=== PATIENT | female | born 1990 | race Caucasian/White ===

== ENCOUNTER 2021-05-21 14:50 | Emergency (ER) | payer OTHER, SELFPAY ==
--- NOTE | ~2021-05-21 | XR_ITS ---
EXAMINATION: XR CHEST CLINICAL INFORMATION: Cough COMPARISON: None TECHNIQUE: Frontal view of the chest was obtained. FINDINGS: No significant abnormality is noted involving the heart, lungs, mediastinum, bony thorax or soft tissues. XR/XR chest 1V IMPRESSION: Unremarkable examination.
[2021-05-21 15:47] VITALS: BP 175/85; PULSE 98; RESP 17; TEMP 37.4; O2SAT 99; BMI 41.5
[2021-05-21 21:03] LABS: MANUAL DIFF FLAG NO
[2021-05-21 21:04] LABS: Basophils Percent Auto 0.3 % (0-2); Eosinophils Absolute Auto 0.2 X10*3/uL (0.0-0.4); Eosinophils Percent Auto 1.9 % (0-4); Hematocrit 40.3 % (37.0-47.0); Hemoglobin 13.7 g/dl (12.0-16.0); Imm Gran Abs Auto 0.03 X10*3/uL (0.00-0.03); Imm Gran Pct Auto 0.3 % (0.0-0.4); Lymphocytes Absolute Auto 1.9 X10*3/uL (1.2-4.9); Lymphocytes Percent Auto 18.4 % (20-40); Mean Corpuscular Volume 88.2 fL (80.0-98.0); Mean Platelet Volume 9.4 fL (9.4-12.3); Monocytes Absolute Auto 0.6 X10*3/uL (0.1-1.2); Monocytes Percent Auto 6.1 % (2-11); Neutrophils Absolute Auto 7.6 x10*3/uL (2.0-8.3); Platelet Count 298 X10*3/uL (160-400); Red Blood Count 4.57 X10*6/uL (4.20-5.50); Red Cell Distribution Width 12.1 % (11.0-16.0); White Blood Count 10.4 X10*3/uL (4.8-10.8)
[2021-05-21 21:18] LABS: Alanine Aminotransferase 39 U/L (0-31); Albumin Level 4.3 g/dL (3.5-5.0); Alkaline Phosphatase 79 U/L (39-117); Anion Gap 14 (12-20); Aspartate Amino Transferase 19 U/L (5-31); Bilirubin Total 0.4 mg/dL (0.0-1.0); Blood Urea Nitrogen 12 mg/dL (9-16); COVID-19 Test Negative (Negative); Calcium 9.3 mg/dL (8.4-10.2); Carbon Dioxide 25 mmol/L (22-29); Chloride 104 mmol/L (96-108); Creatinine Clr Calc Pharmacy 120.9; Estimated Glomerular Filt Rate > 60; Glucose Random 93 mg/dL (60-115); Potassium 4.4 mmol/L (3.3-5.1); Sodium 139 mmol/L (135-145); Total Protein 7.3 g/dL (6.5-8.0)
--- NOTE | 2021-05-21 21:34 | ED.URI ---
HPI - URI/Sore Throat General Chief Complaint: Upper Respiratory Symptoms Stated Complaint: ear pain, sore throat, abd pain, fever Time Seen by Provider: 05/21/21 21:35 Source: patient Mode of arrival: ambulatory Limitations: no limitations History of Present Illness HPI Narrative: 30-year-old female presents with upper respiratory symptoms, sore throat, difficulty swallowing, and bilateral earache. Had fever of 102 at home. MD elicited complaint: fever, sore throat, rhinorrhea and nasal congestion Onset (ago): day(s) (3) Consistency: constant Severity: moderate Pain scale (0-10): 7 Description of mucous: clear and watery Able to tolerate fluids by mouth: Yes Exacerbating factors: swallowing Relieving factors: nothing Associated symptoms: fever, chills, myalgias, headache, nasal congestion, sore throat, cough and shortness of breath Treatments prior to arrival: acetaminophen and ibuprofen Related Data Previous Rx's Medication Instructions Recorded azithromycin 250 mg tablet 250 mg PO DAILY 4 Days #4 tab 05/21/21 Allergies Allergy/AdvReac Type Severity Reaction Status Date / Time hydrocodone Allergy Intermediate Hives Verified 05/21/21 15:47 latex Allergy Intermediate Hives Verified 05/21/21 15:47 morphine Allergy Intermediate Hives Verified 05/21/21 15:47 Penicillins Allergy Intermediate Hives Verified 05/21/21 15:47 Review of Systems Review of Systems: Constitutional: positive Fever, positive Chills, positive fatigue, positive Malaise ENT/Mouth: positive sore throat, positive runny nose Eyes: No Discharge Cardiovascular: No Chest Pain, positive SOB Respiratory: Positive Cough, No Sputum, No Wheezing, No Smoke Exposure, No Dyspnea Gastrointestinal: Positive Nausea, no Vomiting, No Diarrhea Genitourinary: no irregular bleeding, No Dysuria, No Urinary Frequency, No Hematuria, No Urinary Incontinence, No Urgency, No Flank Pain, Musculoskeletal: positive Myalgia Skin: No rash Neuro: Positive Headache Yes all other systems are reviewed and are negative [facility] Past Medical History Attestation statement: The following information was validated with the patient. Source: old records reviewed Medical History Asthma Social History Social History Advance Directives: No Advance Directives Information Provided: No Patient : No Physical Exam Vital Signs: Vital Signs: Last Vital Signs Temp 99.3 F 05/21/21 15:47 Pulse 98 05/21/21 15:47 Resp 17 05/21/21 15:47 BP 175/85 H 05/21/21 15:47 Pulse Ox 99 05/21/21 15:47 Body Mass Index 41.5 Appearance: Alert. Oriented X3. Mild distress. Eyes: Pupils equal, round and reactive to light. EOMI. ENT: Pharynx erythematous with bilateral tonsillar exudates without swelling. Erythematous TM without bulging. Neck: Normal inspection. Neck supple. Anterior posterior cervical lymphadenopathy. No mastoid tenderness. CVS: Normal heart rate and rhythm. Pulses normal. Respiratory: No respiratory distress. Breath sounds normal. Abdomen: Soft and nontender. Skin: Skin warm and dry. Normal skin color. Normal skin turgor. Extremities: Gait well-balanced well coordinated. Moves all extremities against resistance. Neuro: No motor deficit. No sensory deficit. Cranial nerves 2-12 intact. Course Course Course Narrative: E.d. wait time 6 hours and 40 minutes 30-year-old female presents with upper respiratory symptoms. Physical exam consistent with pharyngitis and otitis media. Lung sounds are clear, will treat with azithromycin as she is anaphylactic to penicillins and Augmentin. Patient does understand that she must follow-up with primary care physician as needed. Patient verbalized understanding of and agrees to plan care discharge home. MDM - URI/Sore Throat Differential Diagnosis Differential diagnosis: Likely upper respiratory infection, otitis media, sinusitis, viral infection, bronchitis, influenza and pharyngitis Medical Records Attestation: I reviewed the patient's medical records. Lab Data Attestation: I reviewed the patient's lab results. Result diagrams: 05/21/21 20:55 05/21/21 20:55 Labs: Lab Results 05/21/21 05/21/21 05/21/21 Range/Units 20:55 20:55 20:55 WBC 10.4 (4.8-10.8) X10*3/uL RBC 4.57 (4.20-5.50) X10*6/uL Hgb 13.7 (12.0-16.0) g/dl Hct 40.3 (37.0-47.0) % MCV 88.2 (80.0-98.0) fL MCH 30.0 (27.0-33.0) pg MCHC 34.0 (31.0-35.0) g/dl RDW 12.1 (11.0-16.0) % Plt Count 298 (160-400) X10*3/uL MPV 9.4 (9.4-12.3) fL Immature Gran % (Auto) 0.3 (0.0-0.4) % Neut % (Auto) 73.0 (45-73) % Lymph % (Auto) 18.4 L (20-40) % [place] % (Auto) 6.1 (2-11) % Eos % (Auto) 1.9 (0-4) % Baso % (Auto) 0.3 (0-2) % Lymph # (Auto) 1.9 (1.2-4.9) X10*3/uL [place] # (Auto) 0.6 (0.1-1.2) X10*3/uL Eos # (Auto) 0.2 (0.0-0.4) X10*3/uL Baso # (Auto) 0.0 (0.0-0.2) X10*3/uL Abs Immat Gran (auto) 0.03 (0.00-0.03) X10*3/uL Absolute Neuts (auto) 7.6 (2.0-8.3) x10*3/uL Absolute Nucleated RBC 0.000 (0.0-0.012) X10*3/uL Nucleated RBC % (auto) 0.0 (0.0-0.2) /100WBC Sodium 139 (135-145) mmol/L Potassium 4.4 (3.3-5.1) mmol/L Chloride 104 (96-108) mmol/L Carbon Dioxide 25 (22-29) mmol/L Anion Gap 14 (12-20) BUN 12 (9-16) mg/dL Creatinine 0.75 (0.5-1.4) mg/dL Estim Creat Clear Calc 120.9 Estimated GFR > 60 Random Glucose 93 (60-115) mg/dL Calcium 9.3 (8.4-10.2) mg/dL Total Bilirubin 0.4 (0.0-1.0) mg/dL AST 19 (5-31) U/L ALT 39 H (0-31) U/L Alkaline Phosphatase 79 (39-117) U/L Total Protein 7.3 (6.5-8.0) g/dL Albumin 4.3 (3.5-5.0) g/dL COVID-19 ([facility]IRIAM) Negative (Negative) COVID-19 Clin Com See Note Imaging Data Chest x-ray: Attestation: I personally reviewed and interpreted this imaging study as follows: Radiologist's impression: EXAMINATION: XR CHEST CLINICAL INFORMATION: Cough COMPARISON: None TECHNIQUE: Frontal view of the chest was obtained. FINDINGS: No significant abnormality is noted involving the heart, lungs, mediastinum, bony thorax or soft tissues. XR/XR chest 1V IMPRESSION: Unremarkable examination. ? Discharge Plan Discharge Clinical Impression: Upper respiratory infection Qualifiers: URI type: unspecified viral URI Qualified Code(s): J06.9 - Acute upper respiratory infection, unspecified Otitis media Qualifiers: Otitis media type: suppurative Chronicity: acute Laterality: bilateral Recurrence: not specified as recurrent Spontaneous tympanic membrane rupture: without spontaneous rupture Qualified Code(s): H66.003 - Acute suppurative otitis media without spontaneous rupture of ear drum, bilateral Pharyngitis Qualifiers: Pharyngitis/tonsillitis etiology: unspecified etiology Qualified Code(s): J02.9 - Acute pharyngitis, unspecified Patient Disposition: Home, Self-Care Instructions: Pharyngitis (ED), Ear Infection (ED), Upper Respiratory Infection (ED) Additional Instructions: You were evaluated for upper respiratory syndrome. Physical exam indicates pharyngitis and otitis media. Please take azithromycin 250 mg for the next 4 days. We gave your 1st dose in the emergency department. Please alternate Tylenol and Motrin as needed for pain management. Write down what time you take these medications to prevent accidental overdose. Thank you for choosing this emergency department for evaluation. Please follow-up with primary care physician as needed. Return to the emergency department for any new, concerning, or worsening symptoms. Prescriptions: New azithromycin 250 mg tablet 250 mg PO DAILY 4 Days Qty: 4 RF: 0 Stand Alone Forms: Work/School Release
[2021-05-21] MEDS: Ondansetron ODT 4 MG TAB.RAPDIS TRANSLINGU (22:07)
[2021-05-21] MEDS: Azithromycin 500 MG TABLET PO (22:07)
[2021-05-21 22:10] VITALS: BP 144/72; PULSE 74; RESP 18; TEMP 37.2; O2SAT 98
== END 2021-05-21 22:13 | disposition home or self-care (01) ==
PROVIDERS: Emergency Provider Emergency Medicine
DX: J06.9 Acute upper respiratory infection, unspecified (principal); H66.003 Acute suppurative otitis media without spontaneous rupture of ear drum, bilateral; J02.9 Acute pharyngitis, unspecified; H92.03 Otalgia, bilateral; R50.9 Fever, unspecified; R51.9 Headache, unspecified; Z20.822 Contact with and (suspected) exposure to COVID-19
CPT/HCPCS: 36415; 71045; 80053; 85025; 87635; 99283; 99284

== ENCOUNTER 2024-07-30 02:36 | Emergency (ER) | payer OTHER, SELFPAY ==
[2024-07-30 02:48] VITALS: BP 153/90; PULSE 90; RESP 18; TEMP 36.8; O2SAT 97; BMI 43.6
--- NOTE | 2024-07-30 06:36 | ED_ITS ---
HPI - General Adult General Chief complaint: Ear Problems Stated complaint: ear pain Time Seen by Provider: 07/30/24 06:33 Source: patient, family, RN notes reviewed and old records reviewed Mode of arrival: ambulatory Limitations: no limitations History of Present Illness ED Provider: Zelalem MEDINA narrative: Patient is a 33-year-old female presenting to the emergency department with comp laint of bilateral ear pain, R>L. States that she began with URI symptoms on Friday, went to urgent care and tested negative for Covid and flu. Then went to PCP on Friday, was tested for full respiratory panel, all of which was negative. She was told her TMs were erythematous at that time but did not appear acutely infected and was not started on any medications. Last night the ear pain became more severe. Denies discharge or drainage from ears. Fevers on Sun-Tues, none since. Took Tylenol with little relief. History of frequent ear infections in the past. MD complaint: ear pain Onset (ago): day(s) Radiation: non-radiation Severity: severe Quality: aching Pain Consistency: constant Relieving factors: none Treatments prior to arrival: other Related Data Previous Rx's ?Medication ?Instructions ?Recorded azithromycin 250 mg tablet 250 mg PO DAILY 4 days #4 tabs 05/21/21 ondansetron HCl 4 mg tablet 4 mg PO Q8H PRN nausea and 05/21/21 (Zofran) vomiting #10 tabs azithromycin 250 mg tablet See Rx Instructions PO .COMPLEX #6 07/30/24 tabs Allergies Allergy/AdvReac Type Severity Reaction Status Date / Time hydrocodone Allergy Intermediate Hives Verified 07/30/24 02:50 latex Allergy Intermediate Hives Verified 07/30/24 02:50 morphine Allergy Intermediate Hives Verified 07/30/24 02:50 Penicillins Allergy Intermediate Hives Verified 07/30/24 02:50 Review of Systems Review of Systems: As per HPI. Yes all other systems are reviewed and are negative Constitutional: Constitutional: Reports as per HPI [facility] Past Medical History Medical History Asthma Social History Social History Advance Directives: No Do you have a plan to hurt others: No Plan Physical Exam ED Vital Signs: Vital Signs - 24 hr 07/30/24 02:48 Temperature 98.3 F Pulse Rate 90 Respiratory Rate 18 Blood Pressure 153/90 H Pulse Oximetry 97 Oxygen Delivery Method Room Air BMI result Body Mass Index 43.6 Vital signs have been reviewed and appear to be correct. Blood pressure elevated. Heart rate normal. Respiratory rate normal. Temperature normal. Oxygen saturation normal. Const General: cooperative, healthy appearing and no acute distress Orientation/consciousness: oriented to person, oriented to place, oriented to time and patient oriented x3 Limitations: no limitations HENMT Head: Yes normocephalic and Yes atraumatic Ears: hearing grossly normal bilaterally, external ears normal, EAC's normal, mastoids normal bilaterally, no periauricular adenopathy and TM abnormal bulging on the right, wth effusion purulent on the right and erythematous bilateral General nose exam: Normal external nose present and Normal nasal mucous membranes and turbinates present Face and sinus: Yes face symmetric Mouth: oropharynx normal and moist mucous membranes Throat: Yes uvula midline Eyes Pupils: Equal, round and reactive pupils present Neck Neck: Yes normal visual inspection and Yes supple Resp Effort & Inspection: normal respiratory effort and able to speak in complete sentences Auscultation: clear to auscultation bilaterally Cardio Rate: regular rate Rhythm: regular rhythm Heart sounds: S1 normal heart sound present and S2 normal heart sound present GI Palpation (GI): Soft to palpation and nontender Auscultation: normoactive bowel sounds General: Yes no CVA tenderness Back/Spine/Pelvis Back: no CVA tenderness Skin General skin exam: elasticity normal and turgor normal Neuro General: oriented to person, oriented to place, oriented to time, patient oriented x3, moves all extremities, no focal motor deficits and CN's II-XI intact bilaterally Cranial nerves: Yes Equal, round and reactive pupils present Cognition (Neuro): normal cognition Extrem General: Yes full ROM, Yes no pedal edema and Yes no calf tenderness Psych Mental Status: mental status grossly normal Affect: normal affect Thought process: Normal thought process present Medical Decision Making Medical Decision Making MDM Narrative: Patient is a 33-year-old female presenting to the emergency department with complaint of bilateral ear pain, R>L. On exam patient is awake, A+Ox3, VS WNL, afebrile, normal neurological exam without focal deficits, physical exam findings as above. Given reported symptoms and physical exam findings, initial differential includes but is not limited to otitis media, otitis externa, cerumen impaction. Do not suspect mastoiditis. Physical exam findings consistent with bilateral AOM. Will treat with azithromycin as patient has PCN allergy, also advised Tylenol/ibuprofen and nasal saline spray. Follow up with PCP as needed. Return precautions discussed. Patient verbalized understanding of and agreement with plan. Differential Diagnosis Differential Diagnoses: The differential diagnosis associated with the presentation includes As per [facility] External Record Review External record reviewed: Inpatient record, Office record and Outpatient record Prescription Management I considered prescription management with: Antibiotic Discharge Plan Discharge Clinical Impression: Otitis media Patient Disposition: Home, Self-Care Instructions: Ear Infection (ED) Additional Instructions: You were evaluated in the emergency department today for ear pain. Your ev aluation suggests that your pain is due to an ear infection. Please take your prescribed antibiotics as directed for the full course of the medication. You can apply warm compresses to the area for 10-15 minutes at a time several times daily. We recommend that you begin using over the counter nasal saline spray several times daily. We recommend that you take 650 mg of Tylenol or 600 mg of ibuprofen every 6 hours as needed. If necessary, you can alternate these medications every 3 hours. For example, at 9:00 a.m. take Tylenol, then at noon take ibuprofen, then at 3:00 p.m. take Tylenol, etc.. Please follow up with your primary care provider within two days. Return to the emergency department if you experience hearing loss, discharge from your ear, headaches, fevers, recurrent vomiting, or any other concerning symptoms. Prescriptions: New azithromycin 250 mg tablet See Rx Instructions .ROUTE .COMPLEX Qty: 6 0RF Rx Instructions: For 250 mg dose pack: take 500 mg today (day 1), then 250 mg for 4 days (days 2-5) No Action azithromycin 250 mg tablet 250 mg PO DAILY 4 Days Qty: 4 0RF Rx Instructions: start on day 2 of therapy ondansetron HCl [Zofran] 4 mg tablet 4 mg PO Q8H PRN (Reason: nausea and vomiting) Qty: 10 0RF Stand Alone Forms: Work/School Release Print Language: Citizen Of [place]
--- OUTSIDE RECORDS SUMMARY | 2024-07-30 06:38 | XMS_ITS | Encounter Summary ---
Author Organization [facility] Address [address] [place] [address] Care Team Providers Care Process Safety Engineering Technologist Name Role Phone Perla Blackburn MD Primary Care Prov ider Reason for Visit * Reason Comments Follow-up Cough and congestion Rib pain, bilateral Encounter Details Date Type Department Care Team (Late st Contact Info) Description 07/26/2024 2:00 PM EST Office Visit Adult Medicine [facility] [address] [place] [address] Chandler Lindsay MD [address] [place] [address] Moderate persistent asthma without complication (Primary Dx); Metabolic dysfunction-associate d steatotic liver disease (MASLD); Screening for diabetes mellitus (DM); Acute cough; Encounter for vitamin deficiency screening Social History Tobacco Use Types Packs/Day Years Used Date Smoking Tobacco: Some Days Smokeless Tobacco: Never Tobacco Cessation:Ready to Q uit: Not Asked; Counseling Given: Not Answered Alcohol Use Standard Drinks/Week Comments Yes 0 (1 standard drink = 0.6 oz pur e alcohol) Housing Instability Answer Date Recorde d Are you worried that in the next 2 months you may not have stable housing? No 04/26/2024 Food Access & Nutrition Answer Date Rec orded Do you have access to a vari ety of food including fruits and vegetables? Yes 04/26/2024 Health Literacy Answer Date Recorded How often do you need to hav e someone help you when you read instructions, pamphlets, or other written material from your doctor or pharmacy? Never 04/26/2024 Caregiver: How often do you need to have someone help you when you read instructions, pamphlets, or other written material from your doctor or pharmacy? Not on file 04/26/2024 Financial Risk Answer Date Recorded How hard is it for you to pa y for the very basics like food, housing, medical care, and air conditioning / heating? Not very hard 04/26/2024 Transportation Answer Date Recorded Has the lack of transportati on kept you from meetings, work, or from getting things needed for daily living? No Has the lack of transportati on kept you from medical appointments or from getting medications? No 04/26/2024 Social Isolation Answer Date Recorded How often do you feel lonely or isolated from th ose around you? Never 04/26/2024 Food Risk Answer Date Recorded Within the past 12 months we worried whether our food would run out before we got money to buy more. Never true 04/26/2024 Within the past 12 months th e food we bought just didn't last and we didn't have money to get more. Never true 04/26/2024 Dependent Care Answer Date Recorded Do you need help finding or paying for care for your loved ones. For example, child care director or elderly care for an older adult? No 04/26/2024 Education Answer Date Recorded Do you think completing more education or training, like finishing a GED, going to college, or learning a trade, would be helpful for you? No 04/26/2024 Employment and Income Answer Date Recor ded During the last four weeks, have you been actively looking for work? No 04/26/2024 Living Situation Answer Date Recorded What is your living situation? 1 06/26/2023 Sex and Gender Information Value Date Recorded Sex Assigned at Not on file Gender Identity Not on file Sexual Orientation Not on file Job Start Date Occupation Industry Not on file Not on file Not on file documented as of this encounter Last Filed Vital Signs Vital Sign Reading Time Taken Comments Blood Pressure 130/83 07/26/2024 1:52 PM EST Pulse 94 07/26/2024 1:52 PM EST Temperature 36.2 ??C (97.2 ??F) 07/26/2024 1:52 PM ES T Respiratory Rate 16 07/26/2024 1:52 PM EST Oxygen Saturation - - Inhaled Oxygen Concentration - - Weight 105 kg (231 lb 3.2 oz) 07/26/2024 1:52 PM EST Height 154.9 cm (5' 1 ) 07/26/2024 1:52 PM EST Body Mass Index 43.68 07/26/2024 1:52 PM EST documented in this encounter Ordered Prescriptions Prescription Sig Dispensed Refills Start Date End Da te EPINEPHrine (EpiPen 2-Adithya) 0.3 mg/0.3 mL injection Inject 0.3 mL (0.3 mg total) into the thigh if needed for anaphylaxis. 1 each 3 07/26/2024 loratadine (CLARITIN) 10 mg tablet Take 1 tablet (10 mg total) by mouth 1 (one) time each day. 90 tablet 2 07/26/2024 documented in this encounter Progress Notes * Chandler Lindsay MD - 07/26/2024 2:00 PM EST SUBJECTIVE: Pennie Altamirano is a 33 y.o. female who presents today for Chief Complaint Patient presents with Follow-up Cough and congestion Rib pain, bilateral HPI: Patient presenting for routine med review as well as evaluation. She states for the last 1 week shehas been having cough, chest congestion, sore throat, generalized bodyaches. She has been using albuterol more frequently. Currently on Advair. Current Meds: Current Outpatient Medications: Advair HFA 45-21 mcg/actuation inhaler, Inhale 2 puffs by mouth 2 (two) times a day., Disp: , Rfl: albuterol 2.5 mg /3 mL (0.083 %) nebulizer solution, Take 1 Vial by nebulization every 4 hours as needed for Wheezing for up to 180 days., Disp: , Rfl: albuterol HFA (PROAIR HFA ; PROVENTIL HFA ; VENTOLIN HFA) 90 mcg/actuation inhaler, Inhale 2 Puffs into the lungs every 4 hours as needed for Cough, Wheezing or Shortness of Breath., Disp: , Rfl: clobetasoL (TEMOVATE) 0.05 % cream, Apply to the affected area on the arms (avoid the face) twice daily for two weeks, Disp: , Rfl: EPINEPHrine (EpiPen 2-Adithya) 0.3 mg/0.3 mL injection, Inject 0.3 mL (0.3 mg total) into the thigh if needed for anaphylaxis., Disp: 1 each, Rfl: 3 fluticasone propionate (FLONASE) 50 mcg/actuation nasal spray, Administer 2 sprays into affected nostril(s)., Disp: , Rfl: hydrocortisone 2.5 % cream, Apply sparingly to affected areas 1 - 2 times a day as needed, Disp: , Rfl: ibuprofen (ADVIL,MOTRIN) 600 mg tablet, Take 1 Tablet by mouth every 8 hours as needed for Pain., Disp: , Rfl: ipratropium (ATROVENT) 21 mcg (0.03 %) nasal spray, Administer 1 spray into each nostril every 12 (twelve) hours., Disp: , Rfl: ketoconazole (NIZORAL) 2 % shampoo, APPLY TOPICALLY 1 (ONE) TIME PER WEEK. APPLY TO DAMP SKIN, LATHER, LEAVE ON 5 MINUTES, AND RINSE, Disp: 120 mL, Rfl: 0 loratadine (CLARITIN) 10 mg tablet, Take 1 tablet (10 mg total) by mouth 1 (one) time each day., Disp: 90 tablet, Rfl: 2 meclizine (ANTIVERT) 25 mg tablet, Take 1 tablet (25 mg total) by mouth 3 (three) times a day if needed for dizziness., Disp: 30 tablet, Rfl: 0 montelukast (SINGULAIR) 10 mg tablet, , Disp: , Rfl: ondansetron (ZOFRAN) 4 mg tablet, Take 1 Tab by mouth every 8 hours as needed., Disp: , Rfl: sucralfate (CARAFATE) 1 gram tablet, Take 1 Tablet by mouth 2 times daily (before meals). Melt tablet in 4-5oz cup of warm water, stir and drink, Disp: , Rfl: Allergies: Allergies Allergen Reactions Morphine Anaphylaxis Amoxicillin-Pot Clavulanate Rash and Swelling Last given 13 years ago Danieleocado Hives Clindamycin Swelling Had facial swelling with bactrim but then diagnosed with retropharyngeal abscess. Symptoms were improving and was discharged home on po clinda and returned with facial swelling and hives Hydrocodone Nausea And Vomiting dizzy Hydrocodone-Acetaminophen Nausea And Vomiting Latex Hives Mold [place] Runny nose Other Diarrhea Paprika: swelling and edema Meat Extract - Red meat - diarrhea that lasts 2 to 3 days; benadryl stops the pain Penicillins Swelling Hives Shrimp Swelling Throat swelling , avoids all shellfish Sulfa (Sulfonamide Antibiotics) Swelling Review of records, was treated for ear infection and was given bactrim. Developed facial swelling and erythema. Immunizations: Immunization History Administered Date(s) Administered DTaP (Infanrix) 6wks to less than 7yo 01/22/1993, 08/03/1993, 10/03/1993, 12/10/1994, 12/08/1996 LAeY-NRM-ISZ (Pentacel) 2mo to less than 5yo 01/22/1993, 08/03/1993, 02/11/1994 HPV, Quadrivalent 12/30/2008, 02/25/2013 Hepatitis B Pediatric (Engerix B; Recombivax HB) to less than 20 yo 08/03/1993, 08/31/1993, 02/11/1994 Hib (HbOC) 01/22/1993, 08/03/1993, 02/11/1994 IPV Inactivated polio (Ipol) 6wks and older 01/22/1993, 08/03/1993, 09/07/1993, 10/03/1993 MMR, measles mumps and rubella Live (Priorix; M-M-R II) 12mo and older 11/20/1993, 12/08/1996 Meningococcal MCV4P 12/30/2008 [employer] SARS-CoV-2 COVID-19, mRNA, LNP-S, preservative free 12/12/2020, 01/02/2021, 08/29/2021 Pneumococcal polysaccharide 23 valent (Pneumovax 23) 2yo and older 01/03/2015 Tb Skin Test 08/09/2021 Td Tetanus diptheria (Tdvax) 7yo and older 02/05/2005, 01/13/2019 Tdap Tetanus diptheria acellular pertussis (Boostrix; Adacel) 7yo and older 12/30/2008 Varicella live (Varivax) 12mo and older 07/22/1994 Active Problems: Patient Active Problem List Diagnosis Anxiety Asthma Cholelithiasis Fatty liver Generalized headaches GERD (gastroesophageal reflux disease) Kidney stone Microalbuminuria PCOS (polycystic ovarian syndrome) Scoliosis Seasonal allergies Severe obesity (BMI 35.0-39.9) with comorbidity (CMS/HCC) Snoring Vitamin D deficiency Metabolic dysfunction-associated steatotic liver disease (MASLD) HISTORY: Past Medical History: Diagnosis Date Anxiety DX:Anxiety Asthma DX:Asthma Depressive disorder DX:Depressive disorder Epigastric pain DX:Epigastric pain Family history of breast cancer DX:Family history of breast cancer; COMMENT: Fam hx Breast and Uterine cancer, Per pt BRCA testing Low risk Fatty liver DX:Fatty liver Generalized headaches DX:Generalized headaches GERD (gastroesophageal reflux disease) 10/30/2012 DX:GERD (gastroesophageal reflux disease) Nausea and vomiting DX:Nausea and vomiting PCOS (polycystic ovarian syndrome) DX:PCOS (polycystic ovarian syndrome) Scoliosis DX:Scoliosis Seasonal allergies DX:Seasonal allergies Vitamin D deficiency DX:Vitamin D deficiency Past Surgical History: Procedure Laterality Date FLEXIBLE SIGMOIDOSCOPY 10/04/2013 PROCEDURE: HISTORICAL FLEXIBLE SIGMOIDOSCOPY; COMMENT: normal to 20 cm UPPER GASTROINTESTINAL ENDOSCOPY 07/23/2019 PROCEDURE: CO UPPER GI ENDOSCOPY PERFORMED; COMMENT: Normal. (Current treatment = famotidine, sucralfate, pantoprazole, ibuprofen) WISDOM TOOTH EXTRACTION PROCEDURE: HISTORICAL WISDOM TEETH EXTRACTION Family History Problem Relation Name Age of Onset Breast cancer Paternal Grandmother 48.00 at 98. Uterine cancer Paternal Grandmother 52.00 Colon cancer Maternal Grandmother 56.00 Uterine cancer Maternal Grandmother 38.00 Breast cancer Mother's side 50.00 Great Aunt Other (Other: diabetes) Mother's side and father's side Stroke Mother's side and father's side Hypertension Mother's side Glaucoma Mother's side Thyroid disease Mother's side Other (Other: epilespy) Mother's side Other (Other: joint problems) Other Uterine cancer Mother's side 48.00 Great Aunt Uterine cancer Mother's side 50.00 Great Aunt Uterine cancer Mother's side 52.00 Great Aunt Uterine cancer Mother's side 56.00 Great Aunt Uterine cancer Mother's side 60.00 Great Aunt Heart attack Father Social History Socioeconomic History Marital status: Spouse name: Not on file Number of children: Not on file Years of education: Not on file Highest education level: Not on file Occupational History Not on file Tobacco Use Smoking status: Some Days Smokeless tobacco: Never Substance and Sexual Activity Alcohol use: Yes Drug use: No Sexual activity: Not on file Other Topics Concern Not on file Social History Narrative Feels safe at home and in relationship ROS: GENERAL: Negative for malaise, significant weight loss and fever NECK: Negative for lumps, goiter, pain, and significant neck swelling RESPIRATORY: Negative for wheezing and shortness of breath, Positive for See HPI CARDIOVASCULAR: Negative for chest pain, leg swelling and palpitations GI: Negative for abdominal discomfort, changes in bowel habits, blood in stool or black stools VITAL SIGNS Vitals: 07/26/24 1352 BP: 130/83 Pulse: 94 Resp: 16 Temp: 36.2 ??C (97.2 ??F) TempSrc: Temporal Weight: 105 kg (231 lb 3.2 oz) Height: 1.549 m (61 ) Body mass index is 43.68 kg/m??. Body surface area is 2.01 meters squared. PHYSICAL EXAM: Blood pressure 130/83, pulse 94, temperature 36.2 ??C (97.2 ??F), temperature source Temporal, resp. rate 16, height 1.549 m (61 ), weight 105 kg (231 lb 3.2 oz). Body mass index is 43.68 kg/m??. Plan is deferred until next visit APPEARANCE: Alert and in no acute distress EYES: PERRLA, conjunctiva and sclera normal EARS: External ears normal. Canals clear. TMs normal. NOSE/SINUS: Nares normal. Septum midline. Mucosa normal. No drainage or sinus tenderness MOUTH/THROAT: mild erythema NECK: Neck supple, no adenopathy, thyroid symmetric and of normal size HEART: RRR with normal S1 and S2, no murmurs, no gallops, no JVD appreciated CHEST: non-tender LUNG: clear to auscultation bilaterally ABDOMEN: Bowel sounds normoactive, no bruits and soft, non-tender, without organomegaly or palpablemasses No results found for this or any previous visit (from the past 4464 hour(s)). ASSESSMENT/PLAN: Pennie was seen today for follow-up. Diagnoses and all orders for this visit: Moderate persistent asthma without complication (Primary) - CBC and differential; Future - Comprehensive metabolic panel; Future Metabolic dysfunction-associated steatotic liver disease (MASLD) - CBC and differential; Future - Comprehensive metabolic panel; Future - Liver fibrosis, fibrotest-actitest panel; Future - Lipid panel with reflex to direct LDL; Future Screening for diabetes mellitus (DM) - Hemoglobin A1c; Future Acute cough - XR Chest 2 Views; Future - Cancel: Respiratory virus panel molecular study; Future - Respiratory virus panel molecular study Encounter for vitamin deficiency screening - Vitamin D 25 hydroxy; Future Other orders - loratadine (CLARITIN) 10 mg tablet; Take 1 tablet (10 mg total) by mouth 1 (one) time each day. - EPINEPHrine (EpiPen 2-Adithya) 0.3 mg/0.3 mL injection; Inject 0.3 mL (0.3 mg total) into the thigh if needed for anaphylaxis. Plan Presentation consistent with a viral respiratory tract infection, most likely bronchitis. Does not appear to be an asthma exacerbation at this time. No wheeze on exam. Continue with albuterol, Advairat this time. Advised to use [id number] Mucinex for symptomatic treatment of the cough at this time. Will obtain respiratory viral panel as well as a chest x-ray. Patient with history of fatty liver. Advised to get the labs prior to 3 weeks from now when she hasrecovered from the viral respiratory tract infection. Will check CBC, CMP, lipid panel as well as FibroSure panel. Advised on low-fat diet, exercise. Check vitamin D as she previously vitamin D deficiency. Continue current inhalers for asthma management. Continue Claritin, montelukast as well. I have applied the code G2211 to this patient???s visit as the primary care provider dealing with (above mentioned conditions) leading to the extensive work up, and management associated with the medical care of this patient. This patient???s serious conditions and complex medical conditions also required several consultants needing management and coordination through my office. I have reviewed all information as it pertains to the management of this patient for final approval. Follow up in about 6 months (around 01/23/2025) for Next scheduled follow-up. Orders Placed This Encounter Procedures Respiratory virus panel molecular study XR Chest 2 Views Hemoglobin A1c CBC and differential Comprehensive metabolic panel Liver fibrosis, fibrotest-actitest panel Lipid panel with reflex to direct LDL Vitamin D 25 hydroxy Chandler Lindsay MD documented in this encounter Plan of Treatment Upcoming Encounters Date Type Department Care Team (Late st Contact Info) Description 08/03/2024 1:40 PM EST Office Visit Obstetrics and Gynecology - [address] [address] Antonia Allred PA [address] [place] [address] Scheduled Orders Name Type Priority Associated Diagnoses Orde r Schedule Hemoglobin A1c Lab Routine Screening for diabetes mellitus (DM) 1 Occurrences starting 07/26/2024 until 07/26/2025 CBC and differential Lab Routine Moderate persistent asthma without complication Metabolic dysfunction-associated steatotic liver disease (MASLD) 1 Occurrences starting 07/26/2024 until 07/26/2025 Comprehensive metabolic panel Lab Routine Moderate persistent asthma without complication Metabolic dysfunction-associated steatotic liver disease (MASLD) 1 Occurrences starting 07/26/2024 until 07/26/2025 Liver fibrosis, fibrotest-actitest panel Lab Routine Metabolic dysfunction-associated steatotic liver disease (MASLD) 1 Occurrences starting 07/26/2024 until 07/26/2025 Lipid panel with reflex to direct LDL Lab Routine Metabolic dysfunction-associated steatotic liver disease (MASLD) 1 Occurrences starting 07/26/2024 until 07/26/2025 Vitamin D 25 hydroxy Lab Routine Encounter for vitamin deficiency screening 1 Occurrences starting 07/26/2024 until 07/26/2025 documented as of this encounter Procedures Procedure Name Priority Date/Time Associated Diagnosis Comments RESPIRATORY VIRUS PANEL MOLECULAR STUDY Routine 07/26/2024 2:30 PM EST Acute cough documented in this encounter Results * XR Chest 2 Views (07/26/2024 2:34 PM EST) Anatomical Region Laterality Modality Body Radiographic Rayne ging 07/26/2024 5:36 PM EST Impressions 07/26/2024 5:37 PM EST No acute cardiopulmonary process. -------- FINAL REPORT -------- Dictated By: Carlos Rosas Dictated Date: 07/26/2024 17:36 ET Assigned Physician: Carlos Rosas Reviewed and Electronically Signed By: Carlos Rosas Signed Date: 07/26/2024 17:37 ET Workstation ID: [id number] Transcribed By: Self Edit Transcribed Date: 07/26/2024 17:36 ET Narrative 07/26/2024 5:37 PM EST HISTORY: acute cough TECHNIQUE: PA and lateral radiographs of the chest COMPARISON: Chest radiograph from 08/15/2022 FINDINGS: There is a normal cardiomediastinal silhouette. The lungs are clear. The osseous structures are intact. ?? Procedure Note Carlos Rosas MD - 07/26/2024 HISTORY: acute cough TECHNIQUE: PA and lateral radiographs of the chest COMPARISON: Chest radiograph from 08/15/2022 FINDINGS: There is a normal cardiomediastinal silhouette. The lungs are clear. Theosseous structures are intact. IMPRESSION: No acute cardiopulmonary process. -------- FINAL REPORT -------- Dictated By: Carlos Rosas Dictated Date: 07/26/2024 17:36 ET Assigned Physician: Carlos Rosas Reviewed and Electronically Signed By: Carlos Rosas Signed Date: 07/26/2024 17:37 ET Workstation ID: [id number] Transcribed By: Self Edit Transcribed Date: 07/26/2024 17:36 ET Chandler Lindsay MD IMG XR PROCEDU RES * (ABNORMAL) Respiratory virus panel molecular study (07/26/2024 2:30 PM EST) Pathologist [facility] Adenovirus Detection by PCR Not Detected Not Detected LAB MICROBIOLOGY METHOD 07/26/2024 9:22 PM EST [facility] Influenza A PCR Not Detected Not Detected LAB MICROBIOLOGY METHOD 07/26/2024 9:22 PM EST [facility] Influenza B PCR Not Detected Not Detected LAB MICROBIOLOGY METHOD 07/26/2024 9:22 PM EST [facility] Coronavirus 229E Not Detected Not Detected LAB MICROBIOLOGY METHOD 07/26/2024 9:22 PM EST [facility] Coronavirus HKU1 Not Detected Not Detected LAB MICROBIOLOGY METHOD 07/26/2024 9:22 PM [facility] Coronavirus OC43 Not Detected Not Detected LAB MICROBIOLOGY METHOD 07/26/2024 9:22 PM [facility] Coronavirus NL63 Detected(A ) Not Detected LAB MICROBIOLOGY METHOD 07/26/2024 9:22 PM [facility] Parainfluenza Virus 1 Not Detected Not Detected LAB MICROBIOLOGY METHOD 07/26/2024 9:22 PM [facility] Parainfluenza Virus 2 Not Detected Not Detected LAB MICROBIOLOGY METHOD 07/26/2024 9:22 PM [facility] Parainfluenza Virus 3 Not Detected Not Detected LAB MICROBIOLOGY METHOD 07/26/2024 9:22 PM [facility] Parainfluenza Virus 4 Not Detected Not Detected LAB MICROBIOLOGY METHOD 07/26/2024 9:22 PM [facility] RSV PCR Not Detected Not Detected LAB MICROBIOLOGY METHOD 07/26/2024 9:22 PM [facility] Human Metapneumovirus A and B Not Detected Not Detected LAB MICROBIOLOGY METHOD 07/26/2024 9:22 PM [facility] Rhinovirus/Entero virus Not Detected Not Detected LAB MICROBIOLOGY METHOD 07/26/2024 9:22 PM [facility] Bordetella pertussis Not Detected Not Detected LAB MICROBIOLOGY METHOD 07/26/2024 9:22 PM [facility] Bordetella parapertussis Not Detected Not Detected LAB MICROBIOLOGY METHOD 07/26/2024 9:22 PM [facility] Mycoplasma pneumo by PCR Not Detected Not Detected LAB MICROBIOLOGY METHOD 07/26/2024 9:22 PM [facility] Chlamydia pneumoniae Not Detected Not Detected LAB MICROBIOLOGY METHOD 07/26/2024 9:22 PM [facility] SARS COV-2 Not Detected Not Detected LAB MICROBIOLOGY METHOD 07/26/2024 9:22 PM EST [facility] Swab Both anterior nares / Unknown Non-blood Collection / Unknown 07/26/2024 2:30 PM EST 07/26/2024 2:30 PM EST Narrative [facility] - 07/26/2024 9:22 PM EST Testing was performed using the [employer] Respiratory Pathogen PCR Assay. All results must be correlated with the clinical findings. Results should not be used as the sole basis for diagnosis. False Negative results may occur from the presence of sequence variants in the region targeted by the assay or the presence of inhibitors. Results may be affected by concurrent antiviral/antimicrobial therapy or levels of organisms that are below the limit of detection. Chandler Lindsay MD LAB MICROBIOLO GY - GENERAL ORDERABLES [facility] [address] [place] [address], documented in this encounter Visit Diagnoses Diagnosis Moderate persistent asthma without complication- Primary Metabolic dysfunction-associated steatotic liver disease (MASLD) Screening for diabetes mellitus (DM) Screening for diabetes mellitus Acute cough Encounter for vitamin deficiency screening Acute cough documented in this encounter Discontinued Medications Medication Sig Discontinue Reason Start Date End Da te predniSONE (DELTASONE) 20 mg tablet Take 3 tab by mouth for 2 days, then 2 tab by mouth for 2 days, then 1 tab by mouth for 2 days. Take with food in the morning. 05/06/2024 07/26/2024 albuterol HFA (PROAIR HFA ; PROVENTIL HFA ; VENTOLIN HFA) 90 mcg/actuation inhalerIndications:Viral URI,Mild intermittent asthma with exacerbation Inhale 2 puffs by mouth every 6 (six) hours if needed for wheezing or shortness of breath. Duplicate order 05/06/2024 07/26/2024 budesonide-formoteroL (Symbicort) 80-4.5 mcg/actuation inhaler INHALE 2 PUFFS INTO THE LUNGS TWICE A DAY 09/26/2022 07/26/2024 EPINEPHrine (EpiPen 2-Adithya) 0.3 mg/0.3 mL injection Inject 1 Device as directed as needed (anaphylaxis). Use as directed Reorder 10/21/2022 07/26/2024 loratadine (CLARITIN) 10 mg tablet Reorder 07/26/2024 documented as of this encounter Historical Medications * This list may reflect changes made after this encounter. Medication Sig Dispensed Refills Start Date End Date ipratropium (ATROVENT) 21 mcg (0.03 %) nasal spray Administer 1 spray into each nostril every 12 (twelve) hours. 07/25/2024 Advair HFA 45-21 mcg/actuation inhaler Inhale 2 puffs by mouth 2 (two) times a day. 06/06/2024 added in this encounter Additional Health Concerns Infection Onset Date Last Indicated Resolved Time Respiratory Rule-Out 07/26/2024 07/26/2024 025 9:22 PM EST COVID-19 Rule-Out 07/26/2024 07/26/2024 07/26/2024 9:22 PM EST documented as of this encounter Care Teams Process Safety Engineering Technologist Relationship Specialty Start Date End Date Perla Blackburn MD [address] [place] [id number] PCP - General Internal Medicine 04/26/24 documented as of this encounter
--- OUTSIDE RECORDS SUMMARY | 2024-07-30 06:38 | XMS_ITS | Data Portability ---
Author Organization [facility], [address] Address [address] [place] [address] Care Team Providers Care Certified Nurse Name Role Phone [facility] Prim estero Care Provider Assessment No assessment recorded. Plan of Treatment Reminders Order Date Submit Date Provider Last Modified By Organization Details Last Modified Time Details Appointments None recorded. Lab rapid flu (A+B) 2021 022 [email or web address] [facility] [address], [address] [place], [address], 16:57:43 rapid SARS CoV 2 Ag, QL IA, respirato ry specimen 2021 022 [email or web address] [facility] [address], [address] [place], [address], 16:57:43 urinalysi s, dipstick 2021 022 [email or web address] [facility] [address], [address] [place], [address], 16:57:43 test, urine 2021 022 [email or web address] [facility] [address], [address] [place], [address], 16:57:43 culture, urine 2021 022 [email or web address] [facility] ([place]), [address] [facility], [place], [address], 17:05:08 Referral None recorded. Procedures None recorded. Surgeries None recorded. Imaging None recorded. Medication Orders Tamiflu 75 mg capsule 2021 [facility] #[id number], [phone] [place], [address], 16:57:48 Macrobid 100 mg capsule 2021 022 [id number], [phone] [place], [address], 16:57:46 Patient TargetsNo targets recorded. Patient Instructions Encounter Date Encounter Id Patient Instructions Last Modified By Organization Details Last Modified Time 06/02/2022 [id number] We recommend you get a repeat urinalysis in 2 weeks to ensure that any abnormalities have resolved. If urine abnormalities persist, you will likely need further testing or treatment. We will contact you within 3 to 5 days with the results of your lab test. If you have not heard back from us within that time frame, please feel free to contact our office regarding your results. Go to the Emergency Department immediately if your symptoms worsen or if you develop new symptoms that concern you. Drink plenty of fluids You should follow-up with your PCP in 4-5 days, or at any time if your condition does not improve or worsens. Any acute change should prompt a visit to the nearest Emergency Department. [email or web address] Not available 06/02/2022 16:57:59 You have tested positive for the flu (influenza). If prescribed take Tamiflu (oseltamivir). Take Mucinex DM or Robitussin DM as needed for cough and congestion. You can also try Flonase Allergy 2 sprays to each nostril once a day for congestion. You can also try saline spray for stuffy nose. If you do not have high blood pressure or heart problems, you can try Sudafed or similar decongestants for congestion. If you have high blood pressure you can take Coracidin HBP You can take Claritin or Zyrtec as needed for drainage. Take over the counter acetaminophen or ibuprofen as needed for pain, body aches, fever, or chills. You can try throat lozenges or salt water gargles for any sore throat. Your symptoms may take 7-10 days to go away. Drink lots of fluids. Get plenty of rest. Contact us if you have worsening symptoms such as high fever, shortness of breath, inability to keep liquids and solids down, or other worsening symptoms. Contact us if your symptoms fail to improve after 10 days. [email or web address] Not available 06/02/2022 16:58:07 Reason for Referral None Reported. Results Created Date Observation Date Name Description Value Unit Range Abnormal Flag Note LastModifiedBy Organization Detail LastModifiedTime 06/02/20 22 06/02/2022 rapid SARS CoV 2 Ag, QL IA, respi rator y speci men Unknown Analyte Normal =Negat lacey Not Available [address] [place], [address], 06/02/2022 16:38:11 06/02/20 22 06/02/2022 rapid SARS CoV 2 Ag, QL IA, respi rator y speci men Unknown Analyte negati ve Not Available [address] [place], [address], 06/02/2022 16:38:11 06/02/20 22 06/02/2022 rapid flu (A+B) Unknown Analyte positi ve Not Available [address] [place], [address], 06/02/2022 16:37:54 06/02/20 22 06/02/2022 rapid flu (A+B) Unknown Analyte Normal = Negati ve Not Available [address] [place], [address], 06/02/2022 16:37:54 06/02/20 22 06/02/2022 rapid flu (A+B) Unknown Analyte negati ve Not Available [address] [place], [address], 06/02/2022 16:37:54 06/02/20 22 06/02/2022 rapid flu (A+B) Unknown Analyte Normal = Negati ve Not Available [address] [place] [address] [place], [address], 06/02/2022 16:37:54 06/02/20 22 06/02/2022 pregn jessenia test, urine Unknown Analyte Normal = Negati ve Not Available [facility] [address] [place], [address], 06/02/2022 16:12:09 06/02/20 22 06/02/2022 pregn jessenia test, urine Unknown Analyte negati ve Not Available [facility] [address] [place], [address], 06/02/2022 16:12:09 06/02/20 22 06/02/2022 urina lysis , dipst ick Unknown Analyte Yellow Not Available [address] [place] [address] [place], [address], 06/02/2022 16:12:09 06/02/20 22 06/02/2022 urina lysis , dipst ick Unknown Analyte Normal = light yellow , dark yellow Not Available [facility] [address] [place], [address], 06/02/2022 16:12:09 06/02/20 22 06/02/2022 urina lysis , dipst ick Unknown Analyte cloudy Not Available [address] [place] [address] [place], [address], 06/02/2022 16:12:09 06/02/20 22 06/02/2022 urina lysis , dipst ick Unknown Analyte Normal = clear Not Available [address] [place], [address], 06/02/2022 16:12:09 06/02/20 22 06/02/2022 urina lysis , dipst ick Unknown Analyte Negati ve Not Available [address] [place], [address], 06/02/2022 16:12:09 06/02/20 22 06/02/2022 urina lysis , dipst ick Unknown Analyte Normal = negati ve Not Available [address] [place], [address], 06/02/2022 16:12:09 06/02/20 22 06/02/2022 urina lysis , dipst ick Unknown Analyte Negati ve Not Available [address] [place], [address], 06/02/2022 16:12:09 06/02/20 22 06/02/2022 urina lysis , dipst ick Unknown Analyte Normal = Negati ve Not Available [address] [place], [address], 06/02/2022 16:12:09 06/02/20 22 06/02/2022 urina lysis , dipst ick Unknown Analyte Negati ve Not Available [address] [place], [address], 06/02/2022 16:12:09 06/02/20 22 06/02/2022 urina lysis , dipst ick Unknown Analyte Normal = Negati ve Not Available [address] [place], [address], 06/02/2022 16:12:09 06/02/20 06/02/2022 urina lysis , dipst ick Unknown Analyte 1.025 Not Available [address] [place] [address] [place], [address], 06/02/2022 16:12:09 06/02/20 22 06/02/2022 urina lysis , dipst ick Unknown Analyte Normal = 1.010, 1.015, 1.020 Not Available [address] [place], [address], 06/02/2022 16:12:09 06/02/20 22 06/02/2022 urina lysis , dipst ick Unknown Analyte Trace- intact Not Available [address] [place], [address], 06/02/2022 16:12:09 06/02/20 22 06/02/2022 urina lysis , dipst ick Unknown Analyte Normal = Negati ve Not Available [address] [place], [address], 06/02/2022 16:12:09 06/02/20 22 06/02/2022 urina lysis , dipst ick Unknown Analyte 7.0 Not Available [address] [place] [address] [place], [address], 06/02/2022 16:12:09 06/02/20 22 06/02/2022 urina lysis , dipst ick Unknown Analyte Normal = 6.5, 7.0, 7.5, 8.0 Not Available [address] [place], [address], 06/02/2022 16:12:09 06/02/20 22 06/02/2022 urina lysis , dipst ick Unknown Analyte 15 mg/dL Not Available [facility] [facility] [address] [place], [address], 06/02/2022 16:12:09 06/02/20 22 06/02/2022 urina lysis , dipst ick Unknown Analyte Normal = Negati ve Not Available [address] [place], [address], 06/02/2022 16:12:09 06/02/20 22 06/02/2022 urina lysis , dipst ick Unknown Analyte 0.2 E.U./d L Not Available [address] [place], [address], 06/02/2022 16:12:09 06/02/20 22 06/02/2022 urina lysis , dipst ick Unknown Analyte Normal = 0.2, 1.0 Not Available [address] [place], [address], 06/02/2022 16:12:09 06/02/20 22 06/02/2022 urina lysis , dipst ick Unknown Analyte Negati ve Not Available [address] [place], [address], 06/02/2022 16:12:09 06/02/20 22 06/02/2022 urina lysis , dipst ick Unknown Analyte Normal = Negati ve Not Available [address] [place], [address], 06/02/2022 16:12:09 06/02/20 22 06/02/2022 urina lysis , dipst ick Unknown Analyte Negati ve Not Available [address] [place], [address], 06/02/2022 16:12:09 06/02/20 22 06/02/2022 urina lysis , dipst ick Unknown Analyte Normal = Negati ve Not Available [address] [facility], [place], [address], 06/02/2022 16:12:09 06/03/20 22 06/04/2022 URINE CULTU RE, ROUTI NE urine culture, routine Final report Not Available [facility] ([facility]) [address] [place], [address], 06/04/2022 18:06:20 06/03/20 22 06/04/2022 URINE CULTU RE, ROUTI NE result 1 No growth Not Available [facility] ([facility]) [address] [facility], [place], [address], 06/04/2022 18:06:20 Result Notes None recorded. Problems Name Problem SNOMED Code Status Onset Date Resolution Date Notes Provider Name and Address Organization Details Recorded Time Seasonal allergy 262403422 Active 022 MYRANDA DRINKWINE null, [place] - [facility] 2 16:14:45 Asthma 835376086 Active 022 MYRANDA DRINKWINE null, PA - [facility] 16:14:52 Problem Notes None recorded. Medical Equipment None Reported. Allergies Allergen ID Allergen Name Allergen Category Reaction Reaction Severity Criticality Documentation Date Start Date Code Code System Note Provider Name and Address Organization Details Recorded Time 53510 morphine medicatio n hives Not available Not available 06/02/2022 7052 RxNorm MYRANDA DRINKWINE null, PA - [facility] 16:13:18 08487 oxycodone medicatio n hives Not available Not available 06/02/2022 7804 RxNorm MYRANDA DRINKWINE null, PA - [facility] 16:13:31 21823 hydrocodo ne Not available hives Not available Not available 06/02/2022 5489 RxNorm MYRANDA DRINKWINE null, PA - [facility] 16:13:47 33960 Product containin g penicilli n and antibioti c (product) medicatio n swelling Not available Not available 06/02/2022 96330 05 SNOMED MYRANDA vernon PA - [facility] 16:14:12 Medications Name Sig Start Date Stop Date Status Note LastModified by Organization Details LastModified Time Tamiflu 75 mg capsule Take 1 capsule twice a day by oral route for 5 days. 022 active Not Available Not Available Not Avai lable Macrobid 100 mg capsule Take 1 capsule every 12 hours by oral route for 7 days. 022 active Not Available Not Available Not Avai lable albuterol sulfate active Not Available Not Available Not Available Zyrtec active Not Available Not Availa ble Not Available Vitals Date Recorded Body height Body mass index (BMI) Body weight Pain severity - 0-10 verbal numeric rating [Score] - Reported Body temperature Respiratory rate Heart rate Oxygen saturation Oxygen saturation in Arterial blood by Pulse oximetry Systolic blood pressure Diastolic blood pressure Provider Name and Address Organization Details Last Updated DateTime 154.94 cm 40.6 kg/m2 14077.3 6 g 10 99.6 [degF] 18 /min 121 /min 96 % 96 % 125 mm[Hg] 89 mm[Hg] MYRANDA WRIGHT PA - [facility] 16:19:49 Social History Question Answer Notes LastModified by Organizat ion Details LastModified Time Tobacco Smoking Status Current Some Day Smoker MYRANDA vernon PA - [facility] 06/02/2022 16:16:20 Which Illicit Or Recreational Drugs Have You Used? Marijuana Information not available 06/02/2022 Do You Use Any Illicit Or Recreational Drugs? Yes Information not available 06/02/2022 Have You Recently Traveled Abroad? Yes [place] 05/23- 7 Information not available 06/02/2022 Do You Or Have You Ever Used Any Other Forms Of Tobacco Or Nicotine? No Information not available 06/02/2022 Sex: Unknown Functional Status None recorded. Mental Status None recorded. Family History Relationship Description Onset Age of this Age Resolved Age Notes LastModified by Organization Details LastModified Time Father Heart disease [email or web address] Not available 06/02 16:15:14 Mother Heart disease ldrinkwine Not available 06/02 16:15:14 Mother Diabetes mellitus [email or web address] Not available 06/02 16:15:21 Mother Disorder of thyroid gland [email or web address] Not available 06/02 16:15:33 Mother Glaucoma [email or web address] Not availab le 06/02/2022 16:15:41 Medical History No medical history recorded. Gynecological HistoryNo gynecological history recorded. Obstetrics History GPAL:G 0 P 0 0 0 0 Past Encounters Encounter ID Performer Location Encounter Start Date Encounter Closed Date Diagnosis/Indication Diagnosis SNOMED-CT Code Diagnosis ICD10 Code Diagnosis Note [id number] [address] [place] [address] 10/12/2020 09:13:12 10/12/2020 11:00:54 [id number] [address] [place] [address] 05/22/2017 12:24:42 05/22/2017 12:59:23 [id number] Woo HarryKAEYLN jennings [address] [place] [address] 06/02/2022 13:23:57 06/02/2022 17:12:31 Acute urinary tract infection 659351931 N39.0 Influenza caused by Influenza A virus 849053143 J09.X2 Health Concerns Section Related Observation LastModified by Organization Detai ls LastModified Time None Recorded Concern Status LastModified by Organization Details LastModified Time None Recorded Advance Directives Directive None Recorded Payers Encounter Date Sequence Insurance Name Policy Number Policy Cuenca Covered Member ID Cuenac Member ID Guarantor Name 10/12/2020 1 [facility] NET PLAN (MEDICAID HMO) ANDRE Altamirano [id number] Pennie Altamirano 06/02/2022 1 [facility] NET PL[facility] (MEDICAID HMO) ANDRE Altamirano [id number] Pennie Altamirano Notes Date Note Type Note Provider Name and Address Organization Details Recorded Time 06/02/2022 text/html Urinary Complain t FemaleReported bypatient.Notes:rece ntly travel from [facility] develop dysuria this morning. Also have nasal congestion and post nasal drip. her children are positive for flu also. Woo Mcdonald NP [address] [place], [address], [place] - [facility] 06/02/2022 16:58:42 OBGyn Episode No OBEpisode recorded.
--- OUTSIDE RECORDS SUMMARY | 2024-07-30 06:38 | XMS_ITS | Encounter Summary ---
Author Organization [facility] Address [address] [place] [address] Care Team Providers Care Supervisor Assembly Department Name Role Phone Perla Blackburn MD Primary Care Prov ider Encounter Details Date Type Department Care Team (Latest Contact Info) Description 07/26/2024 2:26 PM EST - 07/26/2024 11:59 PM [facility] Hospital Encounter XRAY - [place] [address] [place] [address] Acute cough Discharge Disposition: Home or Self Care Social History Tobacco Use Types Packs/Day Years Used Date Smoking Tobacco: Some Days Smokeless Tobacco: Never Alcohol Use Standard Drinks/Week Comments Yes 0 [...] for your loved ones. 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 06/06/2024 albuterol 2.5 mg /3 mL (0.083 %) nebulizer solution Take 1 Vial by nebulization every 4 hours as needed for Wheezing for up to 180 days. 07/24/2022 albuterol HFA (PROAIR HFA ; PROVENTIL HFA ; VENTOLIN HFA) 90 mcg/actuation inhaler Inhale 2 Puffs into the lungs every 4 hours as needed for Cough, Wheezing or Shortness of Breath. 07/24/2022 clobetasoL (TEMOVATE) 0.05 % cream Apply to the affected area on the arms (avoid the face) twice daily for two weeks 12/09/2023 12/03/2024 EPINEPHrine (EpiPen 2-Adithya) 0.3 mg/0.3 mL injection Inject 0.3 mL (0.3 mg total) into the thigh if needed for anaphylaxis. 1 each 3 07/26/2024 fluticasone propionate (FLONASE) 50 mcg/actuation nasal spray Administer 2 sprays into affected nostril(s). 02/05/2024 hydrocortisone 2.5 % cream Apply sparingly to affected areas 1 - 2 times a day as needed 06/11/2019 ibuprofen (ADVIL,MOTRIN) 600 mg tablet Take 1 Tablet by mouth every 8 hours as needed for Pain. 09/04/2023 ipratropium (ATROVENT) 21 mcg (0.03 %) nasal spray Administer 1 spray into each nostril every 12 (twelve) hours. 07/25/2024 ketoconazole (NIZORAL) 2 % shampoo APPLY TOPICALLY 1 (ONE) TIME PER WEEK. APPLY TO DAMP SKIN, LATHER, LEAVE ON 5 MINUTES, AND RINSE 120 mL 07/07/2024 loratadine (CLARITIN) 10 mg tablet Take 1 tablet (10 mg total) by mouth 1 (one) time each day. 90 tablet 2 07/26/2024 meclizine (ANTIVERT) 25 mg tablet Take 1 tablet (25 mg total) by mouth 3 (three) times a day if needed for dizziness. 30 tablet 04/26/2024 montelukast (SINGULAIR) 10 mg tablet 04/22/2024 ondansetron (ZOFRAN) 4 mg tablet Take 1 Tab by mouth every 8 hours as needed. sucralfate (CARAFATE) 1 gram tablet Take 1 Tablet by mouth 2 times daily (before meals). Melt tablet in 4-5oz cup of warm water, stir and drink 03/21/2022 documented as of this encounter Discharge Disposition Disposition Code Departure Means Destination Home or Self Care documented in this encounter Plan of Treatment Upcoming Encounters Date Type Department Care Team ([facility] st Contact Info) Description 08/03/2024 1:40 PM EST Office Visit Obstetrics and Gynecology [address] [place] [address] Antonia Allred PA [address] [place] [address] documented as of this encounter Procedures Procedure Name Priority Date/Time Associated Diagnosis Comments XR CHEST 2 VIEWS Routine 07/26/2024 2:34 PM EST Acute cough documented in this [...] Signed Date: 07/26/2024 17:37 ET Workstation ID: [id number] Transcribed By: Self Edit Transcribed Date: 07/26/2024 [...] Signed Date: 07/26/2024 17:37 ET Workstation ID: [id number] Transcribed By: Self Edit Transcribed Date: 07/26/2024 17:36 ET Chandler Lindsay MD IMG XR PROCEDU RES documented in this encounter Visit Diagnoses Diagnosis Acute cough documented in this encounter Additional Health Concerns Infection Onset Date Last Indicated Resolved Time Respiratory Rule-Out 07/26/2024 07/26/2024 025 9:22 PM EST COVID-19 Rule-Out 07/26/2024 07/26/2024 07/26/2024 9:22 PM EST Coronavirus 07/26/2024 07/26/2024 documented as of this encounter Care Teams Supervisor Assembly Department Relationship Specialty Start Date End Date Perla Blackburn MD [address] [place] [address] PCP - General Internal Medicine 04/26/24 documented as of this encounter
--- OUTSIDE RECORDS SUMMARY | 2024-07-30 06:38 | XMS_ITS | Clinical Summary ---
Author Organization [facility] Address [address] [place] [address] Care Team Providers Care Para Educator Name Role Phone Unavailable Primary Care Provider Unavailabl e Allergies Active Allergy Reactions Criticality Noted Date Comments Amoxicillin-Pot Clavulanate 07/03/19 20 Hydrocodone 07/03/2019 Morphine 07/03/2019 Penicillins 07/03/2019 Medications Medication Sig Dispensed Refills Start Date End Date Status FLUoxetine (PROzac) 20 MG capsule Take 20 mg by mouth daily. 0 Active cetirizine (ZyrTEC) 10 MG tablet Take 10 mg by mouth daily. 0 Active buPROPion (WELLBUTRIN) 100 MG tablet Take 100 mg by mouth 2 (two) times a day. 0 Active esomeprazole (NexIUM) 40 MG capsule Take 40 mg by mouth every morning before breakfast. 0 Active desogestrel-ethinyl estradiol (AZURETTE) 0.15-0.02/0.01 MG (/) per tabletIndications:Con traceptive Therapy Take 1 tablet by mouth daily. 0 Active predniSONE (DELTASONE) tablet 20 mg Take 1 tablet (20 mg total) by mouth 2 (two) times a day. 10 tablet 0 07/03/2019 Active albuterol (PROVENTIL HFA;VENTOLIN HFA) 108 (90 Base) MCG/ACT inhaler Inhale 2 puffs into the lungs every 6 (six) hours as needed. 1 Inhaler 0 07/03/2019 Active ciprofloxacin-dexamet hasone (CIPRODEX) otic suspension Place 4 drops into the left ear 2 (two) times a day. 7.5 mL 0 07/03/2019 Active Social History Tobacco Use Types Packs/Day Years Used Date Smoking Tobacco: Never Smokeless Tobacco: Never Alcohol Use Standard Drinks/Week Comments No 0 (1 standard drink = 0.6 oz pur e alcohol) Sex and Gender Information Value Date Recorded Sex Assigned at Female 07/03/2019 9:42 PM EST Gender Identity Female 07/03/2019 9:42 PM EST Sexual Orientation Bisexual 07/03/2019 9: 42 PM EST Last Filed Vital Signs Vital Sign Reading Time Taken Comments Blood Pressure 131/73 07/03/2019 10:41 PM EST Pulse 94 07/03/2019 10:41 PM EST Temperature 37.2 ??C (98.9 ??F) 07/03/2019 10:[address] Respiratory Rate 18 07/03/2019 10:41 PM EST Oxygen Saturation 99% 07/03/2019 10:41 PM EST Inhaled Oxygen Concentration - - Weight 96.6 kg (213 lb) 07/03/2019 8:58 PM EST Height 154.9 cm (5' 1 ) 07/03/2019 8:58 PM EST Body Mass Index 40.25 07/03/2019 8:58 PM EST Plan of Treatment Health Maintenance Due Date Last Done Comments Hepatitis B Vaccines (1 of 3 - 3-dose series) 1992 Hepatitis C Screening 1992 COVID-19 Vaccine (#1) 05/08/1993 Depression Screening 2004 BMI Counseling 2010 Preventative Health Evaluation 2010 DTap / Tdap / Td (1 - Tdap) 11/06/2011 Cervical Cancer Screening (P ap Smear) 2013 Influenza Vaccine (#1) 2024 Pneumococcal Vaccine Aged Out No long er eligible based on patient's age to complete this topic RSV Ped < 20 months Aged Out No longe r eligible based on patient's age to complete this topic
--- OUTSIDE RECORDS SUMMARY | 2024-07-30 06:38 | XMS_ITS | Encounter Summary ---
Author Organization [employer] Address [address] [place] [address] Care Team Providers Care Research Worker Encyclopedia Name Role Phone Perla Blackburn MD Primary Care Prov ider Reason for Visit * Reason Onset Date Comments Rib Pain 07/20/2024 Encounter Details Date Type Department Care Team (Late st Contact Info) Description 07/20/2024 Telephone Adult Medicine [address] [phone] Perla Blackburn MD [address] [place] [address] Rib Pain Social History Tobacco Use Types Packs/Day Years [...] care for your loved ones. For example, infant childcare provider or elderly care for an older adult? [...] on file documented as of this encounter Progress Notes * Laura Ross RN - 07/26/2024 8:54 AM EST Rib pain under both breast Worse when stretching or if she turns quickly No known injury, no redness or swelling Does report chest congestion with cough. States the rib pain COVID and FLU tests are negative yesterday Does have history of asthma and using rescue inhaler more frequently. Pain in the ribs today is 7/10 more when coughing Scheduled eval for 2/3 at 1:45 will wear a mask in the building * Janay Benoit RN - 07/20/2024 1:53 PM EST Called pt left vm to return * Janice Dubon - 07/20/2024 12:53 PM EST Patient call requires triage: Symptoms patient is presenting: rib pain under breast that radiates to her back, difficulty breathing when she has the pain How long has patient had these symptoms?: 1 week For ALL patients calling to schedule any appointment (routine, sick visit, follow up, consult, etc.) in the outpatient setting please ask the following questions: Do you have fever of higher than 101, sore throat with difficulty swallowing or severe shortness ofbreath? If YES to any of these above symptoms, send a message to triage and do not book. Red dot. If no, an audio or video visit should be booked. Have you had close contact with someone with Coronavirus in the last 14 days? no Have you traveled abroad? no Have you traveled recently to another state outside of [place], [place], [place], [place], [place], [place], [place]? no o If yes, did you quarantine for 14 days or have a negative covid test? no If yes to any of the above, patient is not to be scheduled in office until after 14 day quarantine or negative covid test. If pain or injury related was it due to an accident at work or from a motor vehicle accident? If yes, date of accident/Injury: No If yes, gather 3rd republican insurance information Third Libertarian Information: not applicable PCP: Perla Mckoy MD Payor: [employer] / Plan: [employer] MED[employer] / Product Type: *No Product type* / documented in this encounter Plan of Treatment Upcoming Encounters Date Type Department Care Team (Late st Contact Info) Description 08/03/2024 1:40 PM EST Office Visit Obstetrics and Gynecology - [address] [phone] Antonia Allred PA [address] [place] [phone] documented as of this encounter Visit Diagnoses Not on filedocumented in this encounter Care Teams Research Worker Encyclopedia Relationship Specialty Start Date End Date Perla Blackburn MD [address] [place] [phone] PCP - General Internal Medicine 04/26/24 documented as of this encounter
--- OUTSIDE RECORDS SUMMARY | 2024-07-30 06:38 | XMS_ITS | Clinical Summary ---
Author Organization [address] Address [address] [place] [phone] Phone Care Team Providers Care City Planning Aide Name Role Phone Perla Blackburn MD Primary Care Prov ider Allergies Active Allergy Reactions Criticality Noted Date Comments Amoxicillin-Pot Clavulanate Rash,Swelling 10/30/2012 Last given 13 years ago Avocado Hives 07/15/2019 Clindamycin Swelling 12/10/2016 Had facial swelling with bactrim but then diagnosed with retropharyngeal abscess. Symptoms were improving and was discharged home on po clinda and returned with facial swelling and hives Hydrocodone Nausea And Vomiting 10/30/2012 dizzy Hydrocodone-Acetamin ophen Nausea And Vomiting 12/05/2015 Latex Hives 10/04/2015 Mold 02/20/2018 Morphine Anaphylaxis High 08/21/2016 [place] Runny nose 07/15/2019 Other Diarrhea 10/13/2018 Paprika: swelling and edema Meat Extract - Red meat - diarrhea that lasts 2 to 3 days; benadryl stops the pain Penicillins Swelling 10/30/2012 Hives Shrimp Swelling 10/13/2018 Throat swelling , avoids all shellfish Sulfa (Sulfonamide Antibiotics) Swelling 12/10/2016 Review of records, was treated for ear infection and was given bactrim. Developed facial swelling and erythema. Medications Medication Sig Dispensed Refills Start Date End Date Status albuterol 2.5 mg /3 mL (0.083 %) nebulizer solution Take 1 Vial by nebulization every 4 hours as needed for Wheezing for up to 180 days. 3 Active albuterol HFA (PROAIR HFA ; PROVENTIL HFA ; VENTOLIN HFA) 90 mcg/actuation inhaler Inhale 2 Puffs into the lungs every 4 hours as needed for Cough, Wheezing or Shortness of Breath. 3 Active clobetasoL (TEMOVATE) 0.05 % cream Apply to the affected area on the arms (avoid the face) twice daily for two weeks 4 12/04/19 25 Active hydrocortisone 2.5 % cream Apply sparingly to affected areas 1 - 2 times a day as needed 9 Active ibuprofen (ADVIL,MOTRIN) 600 mg tablet Take 1 Tablet by mouth every 8 hours as needed for Pain. 4 Active ondansetron (ZOFRAN) 4 mg tablet Take 1 Tab by mouth every 8 hours as needed. Active sucralfate (CARAFATE) 1 gram tablet Take 1 Tablet by mouth 2 times daily (before meals). Melt tablet in 4-5oz cup of warm water, stir and drink 2 Active fluticasone propionate (FLONASE) 50 mcg/actuation nasal spray Administer 2 sprays into affected nostril(s). 4 Active montelukast (SINGULAIR) 10 mg tablet 4 Active meclizine (ANTIVERT) 25 mg tablet Take 1 tablet (25 mg total) by mouth 3 (three) times a day if needed for dizziness. 30 tablet 4 Active ketoconazole (NIZORAL) 2 % shampoo APPLY TOPICALLY 1 (ONE) TIME PER WEEK. APPLY TO DAMP SKIN, LATHER, LEAVE ON 5 MINUTES, AND RINSE 120 mL 5 Active loratadine (CLARITIN) 10 mg tablet Take 1 tablet (10 mg total) by mouth 1 (one) time each day. 90 tablet 2 5 Active Advair HFA 45-21 mcg/actuation inhaler Inhale 2 puffs by mouth 2 (two) times a day. 4 Active ipratropium (ATROVENT) 21 mcg (0.03 %) nasal spray Administer 1 spray into each nostril every 12 (twelve) hours. 5 Active EPINEPHrine (EpiPen 2-Adithya) 0.3 mg/0.3 mL injection Inject 0.3 mL (0.3 mg total) into the thigh if needed for anaphylaxis. 1 each 3 5 Active EPINEPHrine (EpiPen 2-Adithya) 0.3 mg/0.3 mL injection Inject 1 Device as directed as needed (anaphylaxis). Use as directed 3 07/26/19 25 Discontinued(Reo rder) budesonide-formo teroL (Symbicort) 80-4.5 mcg/actuation inhaler INHALE 2 PUFFS INTO THE LUNGS TWICE A DAY 3 07/26/19 25 Discontinued loratadine (CLARITIN) 10 mg tablet 07/26/19 Discontinued(Reo rder) predniSONE (DELTASONE) 20 mg tablet Take 3 tab by mouth for 2 days, then 2 tab by mouth for 2 days, then 1 tab by mouth for 2 days. Take with food in the morning. 12 tablet 4 07/26/19 25 Discontinued albuterol HFA (PROAIR HFA ; PROVENTIL HFA ; VENTOLIN HFA) 90 mcg/actuation inhalerIndicatio ns:Viral URI,Mild intermittent asthma with exacerbation Inhale 2 puffs by mouth every 6 (six) hours if needed for wheezing or shortness of breath. 6.7 g 4 07/26/19 25 Discontinued(Dup licate order) ketoconazole (NIZORAL) 2 % shampoo APPLY TOPICALLY 1 (ONE) TIME PER WEEK. APPLY TO DAMP SKIN, LATHER, LEAVE ON 5 MINUTES, AND RINSE 120 mL 4 07/07/19 25 Discontinued Active Problems Problem Noted Date Diagnosed Date Metabolic dysfunction-associ ated steatotic liver disease (MASLD) 07/26/2024 Anxiety 04/23/2024 Asthma 04/23/2024 Generalized headaches 04/23/2024 Scoliosis 04/23/2024 Seasonal allergies 04/23/2024 Vitamin D deficiency 04/23/2024 Microalbuminuria 08/19/2022 PCOS (polycystic ovarian syndrome) 03/25/2021 Cholelithiasis 08/17/2019 Kidney stone 04/13/2019 Overview (04/23/2024): Incidental Finding On CAT scan- 2mm kidney stone in Right kidney with no hydronephrosis. Fatty liver 12/05/2015 Severe obesity (BMI 35.0-39.9) with comorbidity 12/05/2015 Snoring 02/07/2015 GERD (gastroesophageal reflux disease) 3 Encounters Date Type Department Care Team Description 07/26/2024 2:26 PM EST - 07/26/2024 11:59 PM EST Hospital Encounter XRAY [address] [phone] Acute cough Discharge Disposition: Home or Self Care 07/26/2024 2:00 PM EST Office Visit Adult Medicine [address] [phone] Chandler Lindasy MD Moderate persistent asthma without complication (Primary Dx); Metabolic dysfunction-associat ed steatotic liver disease (MASLD); Screening for diabetes mellitus (DM); Acute cough; Encounter for vitamin deficiency screening 07/20/2024 Telephone Adult Medicine [address] [phone] Perla Blackburn MD Rib Pain 06/15/2024 Telephone Obstetrics and Gynecology [address] [phone] Rubia Robertson RN 06/15/2024 Telephone Adult Medicine [address] [phone] Perla Blackburn MD 05/28/2024 11:00 AM EST Office Visit Orthopedic Surgery - [place] [address] [place] [address] Wendie Benavides PA Bilateral carpal tunnel syndrome 05/06/2024 5:45 PM EST Office Visit [facility] - [facility] [address] [place] [phone] Edinson Munoz PA Viral URI (Primary Dx); Mild intermittent asthma with exacerbation 05/06/2024 Nurse Triage Adult Medicine [address] [phone] Perla Blackburn MD Vomiting; Nasal Congestion; Earache; Headache from Last 3 Months Immunizations Name Administration Dates Next Due DTaP (Infanrix) 6wks to less than 7yo ,12/10/1994,10/03/1993,08/03,01/22/1993 [id number] (Pentacel) 2mo to less than 5yo 02/11/1994,08/03/1993,01/22/1993 HPV, Quadrivalent 02/25/2013,12/30/2008 Hepatitis B Pediatric (Enger ix B; Recombivax HB) to less than 20 yo 02/11/1994,08/31/1993,08/03/1993 Hib (HbOC) 02/11/1994,08/03/1993,01/22/1993 IPV Inactivated polio (Ipol) 6wks and older 10/03/1993,09/07/1993,08/03/1993,01/22 MMR, measles mumps and rubel la Live (Priorix; M-M-R II) 12mo and older 12/08/1996,11/20/1993 Meningococcal MCV4P 12/30/2008 Pneumococcal polysaccharide 23 valent (Pneumovax 23) 2yo and older 01/03/2015 Tb Skin Test 08/09/2021 Td Tetanus diptheria (Tdvax) 7yo and older 01/13/2019,02/05/2005 Tdap Tetanus diptheria acell ular pertussis (Boostrix; Adacel) 7yo and older 12/30/2008 Varicella live (Varivax) 12m o and older 07/22/1994 Surgical History Surgery Date Site/Laterality Comments WISDOM TOOTH EXTRACTION PROCEDURE: HISTORICAL WISDOM TEETH EXTRACTION FLEXIBLE SIGMOIDOSCOPY 10/04/2013 PROCEDURE: HISTORICAL FLEXIBLE SIGMOIDOSCOPY; COMMENT: normal to 20 cm UPPER GASTROINTESTINAL ENDOSCOPY 07/23/2019 PROCEDURE: CT UPPER GI ENDOSCOPY PERFORMED; COMMENT: Normal. (Current treatment = famotidine, sucralfate, pantoprazole, ibuprofen) Medical History Medical History Date Comments Asthma DX:Asthma Seasonal allergies DX:Seasonal a llergies Vitamin D deficiency DX:Vitamin D deficiency Generalized headaches DX:General ized headaches GERD (gastroesophageal reflux disease) 3 DX:GERD (gastroesophageal reflux disease) Scoliosis DX:Scoliosis Anxiety DX:Anxiety Fatty liver DX:Fatty liver Nausea and vomiting DX:Nausea an d vomiting Epigastric pain DX:Epigastric pa in PCOS (polycystic ovarian syndrome) DX:PCOS (polycystic ovarian syndrome) Depressive disorder DX:Depressiv e disorder Family history of breast cancer DX:Family history of breast cancer; COMMENT: Fam hx Breast and Uterine cancer, Per pt BRCA testing Low risk Family History Medical History Relation Name Comments Heart attack Father Colon cancer Maternal Grandmother Uterine cancer Maternal Grandmother Breast cancer Mother's side 1 Great Aunt Other: diabetes Mother's side 2 and fathe r's side Stroke Mother's side 3 and father's side Hypertension Mother's side 4 Glaucoma Mother's side 5 Thyroid disease Mother's side 6 Other: epilespy Mother's side 7 Uterine cancer Mother's side 8 Great Aunt Uterine cancer Mother's side 9 Great Aunt Uterine cancer Mother's side 10 Great Aun t Uterine cancer Mother's side 11 Great Aun t Uterine cancer Mother's side 12 Great Aun t Other: joint problems Other Breast cancer Paternal Grandmother deceas ed at 98. Uterine cancer Paternal Grandmother Relation Name Status Comments Father Maternal Grandmother Mother Alive Mother's side 1 Mother's side 2 Mother's side 3 Mother's side 4 Mother's side 5 Mother's side 6 Mother's side 7 Mother's side 8 Mother's side 9 Mother's side 10 Mother's side 11 Mother's side 12 Other Paternal Grandmother Social History Tobacco Use Types Packs/Day Years [...] your loved ones. For example, child care development specialist or elderly care for an older adult? [...] file Not on file Not on file Obstetrics History Last Filed Vital Signs Vital Sign Reading Time Taken Comments Blood Pressure 130/83 07/26/2024 1:52 PM EST Pulse 94 07/26/2024 1:52 PM EST Temperature 36.2 ??C (97.2 ??F) 07/26/2024 1:52 PM ES T Respiratory Rate 16 07/26/2024 1:52 PM EST Oxygen Saturation 98% 05/06/2024 6:17 PM EST Inhaled Oxygen Concentration - - Weight 105 kg (231 lb 3.2 oz) 07/26/2024 1:52 PM EST Height 154.9 cm (5' 1 ) 07/26/2024 1:52 PM EST Body Mass Index 43.68 07/26/2024 1:52 PM EST Plan of Treatment Upcoming Encounters Date Type Department Care Team (Late st Contact Info) Description 08/03/2024 1:40 PM EST Office Visit Obstetrics and Gynecology - [place] [address] [place] [phone] Antonia Allred PA [address] [place] [address] Health Maintenance Due Date Last Done Comments HPV Vaccines (3 - 3-dose series) 05/20/2013 02/25/2013, 12/30/2008 Pneumococcal Vaccine: Pediatrics (0 to 5 Years) and At-Risk Patients (6 to 64 Years) (2 of 2 - PCV) 01/04/2016 01/03/2015 COVID-19 Vaccine ( season) 2024 08/29/2021, 01/02/2021, 12/12/2020 Influenza Vaccine (#1) 2024 Depression Screening 07/17/2024 07/17/2023 Social Influencers of Health Screening 04/26/2025 04/26/2024 Cervical Cancer Screening: HPV 08/09/2026 08/09/2021 Cholesterol Screening (Lipid Panel) 07/17/2028 07/17/2023 DTaP,Tdap,and Td Vaccines (9 - Td or Tdap) 01/13/2029 01/13/2019, 12/30/2008, 02/05/2005, Additional history exists HIB Vaccines Completed 02/11/1994, 01/22, 08/03/1993, Additional history exists Hepatitis B Vaccines Completed 02/11/1994, 08/31/1993, 08/03/1993 IPV Vaccines Completed 02/11/1994, 09/21, 09/07/1993, Additional history exists Varicella Vaccines Aged Out 07/22/1994 No longer eligible based on patient's age to complete this topic MMR Vaccines Completed 12/08/1996, 11/20/1993 Meningococcal ACWY Vaccine Completed 12/30/2008 Hepatitis C Screening Completed 08/09/2021 HIV Screening Completed 07/17/2023 Hepatitis A Vaccines Aged Out No long er eligible based on patient's age to complete this topic RSV Immunization Patients Under 20 months Aged Out No longer eligible based on patient's age to complete this topic Procedures Procedure Name Priority Date/Time Associated Diagnosis Comments XR CHEST 2 VIEWS Routine 07/26/2024 2:34 PM EST Acute cough RESPIRATORY VIRUS PANEL MOLECULAR STUDY Routine 07/26/2024 2:30 PM EST Acute cough CT INJECTION CARPAL TUNNEL THERAPEUTIC Routine 05/28/2024 11:00 AM EST Bilateral carpal tunnel syndrome POC RAPID [id number], MOLECULAR Routine 05/06/2024 6:38 PM EST Viral URI HIV SCREENING Routine 07/17/2023 DEPRESSION SCREENING Routine 07/17/2023 LIPID PANEL Routine 07/17/2023 HM HPV Routine 08/09/2021 HEPATITIS C SCREENING Routine 08/09/2021 from Last 3 Months or Most Recently Relevant to Health Maintenance Results * XR Chest 2 Views (07/26/2024 2:34 PM EST) Anatomical Region Laterality Modality Body Radiographic Rayne ging 07/26/2024 5:36 PM EST Impressions 07/26/2024 5:37 PM EST No acute cardiopulmonary process. -------- FINAL REPORT -------- Dictated By: Carlos Rosas Dictated Date: 07/26/2024 17:36 ET Assigned Physician: Carlos Roass Reviewed and Electronically Signed By: Carlos Rosas Signed Date: 07/26/2024 17:37 ET Workstation ID: [id number] Transcribed By: Self Edit Transcribed Date: 07/26/2024 [...] Signed Date: 07/26/2024 17:37 ET Workstation ID: [id number] Transcribed By: Self Edit Transcribed Date: 07/26/2024 17:36 ET Chandler Lindsay MD IMG XR PROCEDU RES * (ABNORMAL) Respiratory virus panel molecular study (07/26/2024 2:30 PM EST) Adenovirus Detection by PCR Not Detected Not Detected LAB MICROBIOLOGY METHOD 07/26/2024 9:22 PM [facility] Influenza A PCR Not Detected Not Detected LAB MICROBIOLOGY METHOD 07/26/2024 9:22 PM EST [facility] Influenza B PCR Not Detected Not Detected LAB MICROBIOLOGY METHOD 07/26/2024 9:22 PM EST [facility] Coronavirus 229E Not Detected Not Detected LAB MICROBIOLOGY METHOD 07/26/2024 9:22 PM [facility] Coronavirus HKU1 Not Detected Not Detected LAB MICROBIOLOGY METHOD 07/26/2024 9:22 PM [facility] Coronavirus OC43 Not Detected Not Detected LAB MICROBIOLOGY METHOD 07/26/2024 9:22 PM [facility] Coronavirus NL63 Detected(A ) Not Detected LAB MICROBIOLOGY METHOD 07/26/2024 9:22 PM [facility] Parainfluenza Virus 1 Not Detected Not Detected LAB MICROBIOLOGY METHOD 07/26/2024 9:22 PM [facility] Parainfluenza Virus 2 Not Detected Not Detected LAB MICROBIOLOGY METHOD 07/26/2024 9:22 PM [facility] Parainfluenza Virus 3 Not Detected Not Detected LAB MICROBIOLOGY METHOD 07/26/2024 9:22 PM [facility] Parainfluenza Virus 4 Not Detected Not Detected LAB MICROBIOLOGY METHOD 07/26/2024 9:22 PM [facility] RSV PCR Not Detected Not Detected LAB MICROBIOLOGY METHOD 07/26/2024 9:22 PM [facility] Human Metapneumovirus A and B Not Detected Not Detected LAB MICROBIOLOGY METHOD 07/26/2024 9:22 PM [facility] Rhinovirus/Entero virus Not Detected Not Detected LAB MICROBIOLOGY METHOD 07/26/2024 9:22 PM [facility] Bordetella pertussis Not Detected Not Detected LAB MICROBIOLOGY METHOD 07/26/2024 9:22 PM [facility] Bordetella parapertussis Not Detected Not Detected LAB MICROBIOLOGY METHOD 07/26/2024 9:22 PM [facility] Mycoplasma pneumo by PCR Not Detected Not Detected LAB MICROBIOLOGY METHOD 07/26/2024 9:22 PM [facility] Chlamydia pneumoniae Not Detected Not Detected LAB MICROBIOLOGY METHOD 07/26/2024 9:22 PM [facility] SARS COV-2 Not Detected Not Detected LAB MICROBIOLOGY METHOD 07/26/2024 9:22 PM EST [facility] Swab Both anterior nares / Unknown Non-blood Collection / Unknown 07/26/2024 2:30 PM EST 07/26/2024 2:30 PM EST Narrative [facility] - 07/26/2024 9:22 PM EST Testing was performed using the [employer] Respiratory Pathogen PCR Assay. All results must [...] MD LAB MICROBIOLO GY - GENERAL ORDERABLES [facility] [address] [place] [address], * CT INJECTION CARPAL TUNNEL THERAPEUTIC (05/28/2024 11:00 AM EST) Narrative Wendie Benavides PA - 05/28/2024 11:00 AM EST MUNIR Bhatti ? 05/28/2024 11:59 AM Hand / UE Inj/Asp: bilateral carpal tunnel for carpal tunnel syndrome Indications: pain Details: 25 G needle, volar approach Medications (Right): 0.5 mL lidocaine 1 %; 20 mg triamcinolone acetonide 40 mg/mL Medications (Left): 0.5 mL lidocaine 1 %; 20 mg triamcinolone acetonide 40 mg/mL Informed Consent: ??Laterality: ??Bilateral ??Relevant images/test results available and reviewed: yes ?Health status cleared: ??Yes ??Procedure/treatment, purpose, treatment alternatives, risks/potential complications and benefits explained: yes ?Risk/complications/benefits details: ??Risks of infection, thinning of the skin and temporary skin discoloration discussed. ??Discussed risks of temporary increased pain after injection and swelling and mild redness at injection site for couple days. ??Explained occasionally cortisone injection can cause facial flushing temporarily. ??Benefits pain management. ??For postop injection pain ice, Tylenol and/or NSAIDs if patient can take ??Patient questions answered: yes ?Patient agrees, verbalizes understanding, and wants to proceed: yes ?Consent given by: ??Patient ??Informed consent discussion completed by Physician/PINKY with patient: ?? Verbal ??Pre-procedure timeout performed: yes ?? Wendie AMARAL IN CLINIC/BEDSIDE OR DERABLES * Poc Rapid [id number], MOLECULAR (05/06/2024 6:38 PM EST) [facility] COVID-19/SARS- COV-2 Rapid POC Negative Negative Swab Nasopharyngeal structure / Unknown 05/06/2024 6:38 PM EST Edinson AMARAL POINT OF CARE TEST ENTER/EDIT ORDERABLES * Depression Screening (07/17/2023) [facility] Depression Screening abstracted Historical Provider [facility] [email or web address] * HIV Screening (07/17/2023) [facility] HIV Screening abstracted [facility] Provider MD HARVEY [email or web address] Myers * (ABNORMAL) Lipid panel (07/17/2023) [facility] LDL/HDL Ratio 5(A) 4 - 4 Triglycerides 268(A) 0 - 150 mg/dL Cholesterol 182 0 - 200 mg/dL HDL 35(A) 40 mg/dL LDL Cholesterol 94 0 - 100 mg/dL Blood Venous blood specimen / Unknown Historical Provider LAB BLOOD ORDERAB LES * Cervical Cancer Screening: HPV (08/09/2021) [facility] Cervical Cancer Screening: HPV no interpretation , abstracted Historical Provider MD HARVEY [email or web address] * Hepatitis C Screening (08/09/2021) [facility] Hepatitis C Screening abstracted Historical Provider [facility] [id number] from Last 3 Months or Most Recently Relevant to Health Maintenance Additional Health Concerns Infection Onset Date Last Indicated Coronavirus 07/26/2024 07/26/2024 Care Teams City Planning Aide Relationship Specialty Start Date End Date Perla Blackburn MD [address] [place] [phone] PCP - General Internal Medicine 04/26/24
[2024-07-30 07:13] VITALS: BP 153/90; PULSE 90; RESP 18; TEMP 36.8; O2SAT 97
== END 2024-07-30 07:13 | disposition home or self-care (01) ==
PROVIDERS: Emergency Provider Emergency Medicine Emergency Medical Services; PCP Internal Medicine
DX: H66.93 Otitis media, unspecified, bilateral (principal); H92.03 Otalgia, bilateral
CPT/HCPCS: 99282; 99283